=== PATIENT | male | born 1970 ===

== ENCOUNTER 2020-04-25 17:17 | Inpatient (IN) | payer SELFPAY ==
[~2020-04-25 17:17] MED LIST: Calcium Chloride 1 GM/10 ML Abboject SYRINGE ONE; EPINEPHrine 1 MG/10 ML Abboject SYRINGE ONE; Iopamidol 300 61% 100 ML VIAL FS ONE; Sodium Bicarb 50 MEQ/50 ML Abboject 8.4% SYRINGE ONE
[2020-04-25] MEDS ORDERED: Sodium Bicarb 50 MEQ/50 ML Abboject 8.4% SYRINGE ONE ×3 (17:23→17:55)
[2020-04-25] MEDS ORDERED: Magnesium 2 GM/50 ML BAG (IN WATER) ONE (17:27)
[2020-04-25] MEDS ORDERED: EPINEPHrine 1 MG/ML AMP ONE ×2 (17:34→17:37)
[2020-04-25] MEDS ORDERED: EPINEPHrine 1 MG/10 ML Abboject SYRINGE ONE ×2 (17:34→17:55)
[2020-04-25] MEDS ORDERED: CEFAZOLIN 1 GM VIAL ONE (17:42)
[2020-04-25] MEDS ORDERED: Boostrix 0.5 ML (Tdap) VIAL ONE (17:42)
[2020-04-25] MEDS ORDERED: Tranexamic Acid 1,000 MG/10 ML VIAL ONE (17:45)
[2020-04-25] MEDS ORDERED: Vecuronium 10 MG VIAL ONE (17:55)
[2020-04-25] MEDS ORDERED: Rocuronium Bromide 10 MG/ML (10ML VIAL) ONE (17:55)
[2020-04-25] MEDS ORDERED: Calcium Chloride 1 GM/10 ML Abboject SYRINGE ONE ×4 (17:55→22:00)
[2020-04-25 18:02] LABS: Bacteria/HPF 4+ HPF (None Seen); Bilirubin Negative (Negative); Blood, Urine 1+ (Negative); Clarity Extra Turbid (Clear); Glucose, Urine (Dipstick) Normal (Negative); Ketone, Urine Negative (Negative); Leukocyte 500 Leu/uL (Negative); Nitrite Negative (Negative); Protein, Urine (Dipstick) 600 mg/dL (Neg-Trace); RBC/HPF 21-50 HPF (0-3); Specific Gravity, Urine 1.019 (1.002-1.036); Squamous Epithelial 0-3 HPF (0-3); Urobilinogen Normal mg/dL (Less than 2); WBC/HPF Greater than 50 HPF (0-3)
[2020-04-25 18:06] LABS: Triple Phosphate Crystal 2+ HPF (None Seen)
[2020-04-25 18:53] LABS: #Eosinphils 0.2 thou/uL (0.0-0.7); #Lymphocytes 1.8 thou/uL (1.20-3.40); #Monocytes 0.2 thou/uL (0.11-0.59); #Neutrophils 8.3 thou/uL (1.40-6.50); %Basophils 0.4 % (0.0-1.0); %Lymphocytes 17.2 % (21.0-51.0); %Monocytes 2.2 % (0.0-10.0); %Neutrophils 78.2 % (42.0-75.0); Mean Corpuscular HGB CONC 33.9 g/dL (32.0-36.0); Mean Corpuscular Hemoglobin 31.8 pg (27.0-31.0); Mean Corpuscular Volume 93.9 fL (78.0-98.0); Red Blood Cell (RBC) Count 3.47 mill/uL (4.70-6.10); White Blood Cell (WBC) Count 10.6 thou/uL (4.8-10.8)
[2020-04-25 19:03] LABS: Mean Platelet Volume 8.2 fL (7.4-10.4); Platelet Count 31 thou/uL (130-400)
[2020-04-25 19:06] LABS: INR-International Normal Ratio 1.9; Prothrombin Time 21.9 sec (12.0-14.7)
[2020-04-25 19:12] LABS: MDiff Complete? YES; Ovalocytes SLIGHT = 2-5 cells (100X) (0-1/hpf); Platelet Morphology Comment Appears Decreased; Polychromasia SLIGHT = 2-3 cells (100X) (0-2/hpf)
[2020-04-25 19:14] LABS: ALT (SGPT) 564 U/L (8-55); AST (SGOT) 633 U/L (5-34); Albumin 2.6 g/dL (3.5-5.0); Alkaline Phosphatase 41 U/L (40-110); Anion Gap 27 mmol/L (10-20); BUN (Urea Nitrogen) 13 mg/dL (8.9-20.6); Bilirubin, Total 0.3 mg/dL (0.2-1.2); Calc. Creatinine Clearance 0 mL/min (70-130); Calcium 7.9 mg/dL (7.8-10.44); Carbon Dioxide 10 mmol/L (22-29); Chloride 112 mmol/L (98-107); Estimated GFR-MDRD 66; Globulin 1.4 g/dL (2.4-3.5); Glucose 203 mg/dL (70-105); PTT 181.6 sec (22.9-36.1); Potassium 4.6 mmol/L (3.5-5.1); Sodium 144 mmol/L (136-145)
[2020-04-25] MEDS ORDERED: Sodium Chloride 0.9% 30 ML ONE (19:16)
[2020-04-25] MEDS ORDERED: Hydrocortisone Sod Succ/PF 100 mg/2 ml Vial IVP SCH (20:15)
[2020-04-25] MEDS ORDERED: Dextrose 5% in Water 1,000 ML IV PRN (20:19)
[2020-04-25] MEDS ORDERED: Dextrose 50% Abboject 50 ML SYRINGE SLOW IVP PRN (20:19)
[2020-04-25] MEDS ORDERED: Ondansetron PF 4 MG/2 ML Vial IVP PRN (20:19)
[2020-04-25] MEDS ORDERED: Sodium Chloride 0.9% 1,000 ML IV SCH (20:19)
[2020-04-25] MEDS ORDERED: Insulin Regular 300 UNITS/3 ML VIAL SC PRN (20:19)
[2020-04-25] MEDS ORDERED: Ventilator Sedation Protocol 1 EACH FS SCH (20:19)
[2020-04-25] MEDS ORDERED: Ondansetron ODT 4 MG TAB PO PRN (20:19)
[2020-04-25 20:20] LABS: Actual Bicarbonate (HCO3a) 25.9 mEq/L (22-28); Base Excess (BEa) -1.2 mEq/L (-2.0 to +3.0); CO2 Tension 56.3 mmHg (35.0-45.0); Calcium, Ionized (arterial) 0.99 mmol/L (1.12-1.30); Carboxyhemoglobin (COHb) 0.1 gm% (0.0-3.0); Hemoglobin (Hb) 8.7 g/dL (14.0-18.0); O2 Tension (PaO2), arterial 61.1 mmHg (80.0-100.0); Potassium - ABG Lab 3.66 mmol/L (3.70-5.30); pH, Arterial 7.28 (7.35-7.45)
[2020-04-25 20:22] LABS: Puncture Site ART LINE
[2020-04-25 20:23] LABS: ALV-art Gradient 581.525 mmHg (0-20)
[2020-04-25] MEDS ORDERED: Lorazepam 2 MG/ML VIAL SLOW IVP PRN (20:30)
[2020-04-25] MEDS ORDERED: Propofol BOLUS 1,000 MG/100 ML VIAL IV PRN (20:30)
[2020-04-25] MEDS ORDERED: Propofol 1,000 MG/100 ML VIAL IV PRN (20:30)
[2020-04-25] MEDS ORDERED: DISCONTINUE PREVIOUS NARCOTIC PAIN MEDICATIONS AND BENZODIAZEPINES FS SCH (20:30)
[2020-04-25] MEDS ORDERED: Fentanyl BOLUS 250 ML IVPB PRN (20:30)
[2020-04-25] MEDS ORDERED: Morphine 2 MG/ML VIAL SLOW IVP PRN (20:30)
[2020-04-25] MEDS ORDERED: fentaNYL Citrate/PF 2,000 MCG in Sodium Chloride 0.9% 60 ML IV SCH (20:30)
[2020-04-25] MEDS: Sodium Bicarb 50 MEQ/50 ML Abboject 8.4% SYRINGE ONE (20:35)
--- NOTE | 2020-04-25 20:42 | RAD ---
ONE VIEW ABDOMEN: 04/25/20 INDICATIONS: An intraoperative exam. Assess for metal foreign body. FINDINGS/IMPRESSION: An NG tube passed through the EG junction and coils within the stomach with tip pointing superiorly. There are numerous radiopaque strips consistent with lap pads. Location of these cannot be assessed o n this one view abdomen. No evidence of metallic foreign body identified. POS: AGW
[2020-04-25] MEDS ORDERED: Sodium Bicarb 50 MEQ/50 ML Abboject 8.4% SYRINGE IVP SCH ×2 (20:45)
[2020-04-25 20:46] LABS: #Eosinphils 0.2 thou/uL (0.0-0.7); #Lymphocytes 1.6 thou/uL (1.20-3.40); #Monocytes 0.1 thou/uL (0.11-0.59); #Neutrophils 4.1 thou/uL (1.40-6.50); %Eosinophils 2.9 % (0.0-10.0); %Lymphocytes 26.4 % (21.0-51.0); %Monocytes 2.2 % (0.0-10.0); %Neutrophils 68.5 % (42.0-75.0); Hemoglobin 8.4 g/dL (14.0-18.0); Mean Corpuscular HGB CONC 36.1 g/dL (32.0-36.0); Mean Corpuscular Hemoglobin 32.7 pg (27.0-31.0); Mean Corpuscular Volume 90.4 fL (78.0-98.0); Mean Platelet Volume 7.7 fL (7.4-10.4); Platelet Count 76 thou/uL (130-400); RBC Distribution Width 13.7 % (11.5-14.5); Red Blood Cell (RBC) Count 2.58 mill/uL (4.70-6.10)
[2020-04-25] MEDS ORDERED: Albumin 5% 250 ML ONE ×2 (20:51)
[2020-04-25] MEDS: EPINEPHrine 4 MG in Dextrose 5% in Water 250 ML IVPB SCH (20:53)
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
[2020-04-25 21:00] VITALS: BMI 25.3
[2020-04-25] MEDS ORDERED: Sodium Bicarbonate 50 MEQ in Sodium Chloride 0.45% 1,000 ML IV ONE (21:00)
[2020-04-25] MEDS ORDERED: Famotidine/PF 20 mg/2ml Vial SLOW IVP SCH (21:00)
--- NOTE | 2020-04-25 21:01 | OP ---
DATE OF PROCEDURE: 04/25/2020 PREOPERATIVE DIAGNOSIS: Traumatic shock. POSTOPERATIVE DIAGNOSIS: Traumatic shock. PROCEDURE PERFORMED: Left subclavian trauma Cordis placement. ANESTHESIA: General. ESTIMATED BLOOD LOSS: Minimal. COMPLICATIONS: None. DESCRIPTION OF PROCEDURE: The left chest was prepped and draped in a sterile fashion. Seldinger needle was used to cannulate the left subclavian vein. A wire was passed in through this Seldinger needle under no tension. A leanna was made at the wire entrance site. The wire was used as a guide to dilate the subclavian vein. The Cordis was placed to its fullest extent and the wire and dilator were removed. The Cordis was sewn to the chest wall using silk. The ports were all flushed and hooked up immediately. No complications of the procedure. Job ID: [id number]
--- NOTE | 2020-04-25 21:01 | OP ---
DATE OF PROCEDURE: 04/25/2020 PREOPERATIVE DIAGNOSIS: Hemoperitoneum. POSTOPERATIVE DIAGNOSES: Hemoperitoneum, multiple traumatic injuries to the small intestinal mesentery with avulsion of parts of the mesentery from the retroperitoneum, multiple small bowel injuries, traumatic tears with loss of small bowel mesentery in multiple places. PROCEDURES PERFORMED: Exploratory laparotomy for trauma with washout, resection without anastomosis of multiple nonviable traumatically injured segments of small intestine, management of bleeding in the mesentery and full traumatic exploration. ABThera placement. TECHNIQUE: The patient was taken emergently from the ER to the OR. His abdomen was shaved. A midline incision was made after prep. All four quadrants were packed with approximately 50 laparotomy pads. We did have a blood pressure at that point. Bookwalter retractor was placed. The packs were removed from the left upper quadrant. At first, revealed no obvious spleen injury. There was significant amount of ongoing bleeding in the central mesentery. The packs were removed after Anesthesia has stabilized the patient to reveal that the base of the small bowel mesentery completely mostly avulsed from the retroperitoneum. There was no significant retroperitoneum ongoing bleeding. There was no injury to major blood vessels. There was significant bleeding along the edges of small bowel mesentery, multiple segments of small bowel mesentery with large traumatic windows all the way to the mesenteric surface of the small bowel with the small bowel torn in these places, and the whole mesenteric side of the small bowel was torn off. Due to the bleeding, he has multiple intraabdominal internal hernias through these traumatic mesenteric rents. The areas where the mesenteric side of the small bowel were completely torn. SAM 75 stapler was fired proximal and distal to remove the segments. No anastomoses were performed in this setting given the patient's critical injuries and ongoing bleeding. Several areas of the these small bowel mesenteric edges were oversewn using silk suture. There was no liver bleeding. There was no spleen bleeding. There was no bleeding ongoing from the retroperitoneum. A medial visceral rotation was started in the right lower quadrant to mobilize the right colon up off the retroperitoneal structures. There was no significant retroperitoneal bleeding during this portion of the procedure. At the base of the small bowel mesentery, there was significant venous bleeding. This area was oversewn using 2-0 silk. Some of the small bowel did start to appear dusky and ischemic during this portion of the procedure, but the majority of the residual small bowel did still appear viable. There was no bleeding in the lesser sac. No obvious pancreatic injury. No duodenal injury or injury in the upper retroperitoneum. No obvious stomach injury. Multiple arterial bleeders were oversewn along the edges of the torn small bowel mesentery in multiple areas. The patient was becoming coagulopathic with all cut surfaces starting to ooze. Decision was made to pack. The patient had multiple lap pads left packed in his abdomen. The ABThera was placed in the usual fashion. He was en route to the ICU in critical and unstable condition. Job ID: [id number]
--- NOTE | 2020-04-25 21:06 | RAD ---
PORTABLE SUPINE CHEST: 04/25/20 INDICATIONS: Intraoperative evaluation. COMPARISON: Film taken earlier today. ET tube, NG tube, appear adequate positioned. Bilateral chest tubes again noted. Cardiomegaly with va scular congestion. Subcutaneous emphysema of chest. The peripheral right chest and CP angle is not in cluded on this film. Radiopaque foreign material overlies the upper abdomen consistent with lap pads. IMPRESSION: No evidence of significant interval change in the appearance of the chest. POS: AGW
[2020-04-25 21:07] VITALS: TEMP 94.9
[2020-04-25 21:07] LABS: Anion Gap 25 mmol/L (10-20); BUN (Urea Nitrogen) 17 mg/dL (8.9-20.6); Calc. Creatinine Clearance 68 mL/min (70-130); Calcium 10.3 mg/dL (7.8-10.44); Carbon Dioxide 23 mmol/L (22-29); Chloride 105 mmol/L (98-107); Estimated GFR-MDRD 49; Glucose 193 mg/dL (70-105); Magnesium 2.3 mg/dL (1.6-2.6); Phosphorus 7.7 mg/dL (2.3-4.7); Potassium 3.9 mmol/L (3.5-5.1); Sodium 149 mmol/L (136-145)
--- NOTE | 2020-04-25 21:11 | RAD ---
PORTABLE SUPINE CHEST: 04/25/20 INDICATIONS: CPR in progress. COMPARISON: 03/24/20. Cardiomegaly with postop sternotomy change. Vascular congestion. Bilateral chest tubes are noted. The re is subcutaneous emphysema over the right chest. There may be tiny bilateral pneumothoraces althoug h no significant pneumothorax is apparent. ET tube is in adequate position with tip above suzy. IMPRESSION: Subcutaneous emphysema over the right chest. No definite rib fracture seen on this portable projectio n. No significant pneumothorax is identified. POS: AGW
[2020-04-25 21:21] LABS: Amphetamine Detected (NotDetected); Barbiturates Screen Not Detected (NotDetected); Benzodiazepine Screen Not Detected (NotDetected); Cocaine Metabolite Screen Not Detected (NotDetected); Medtox Control Line Valid? VALID (VALID); Medtox Reader # READER 4; Methadone Not Detected (NotDetected); Methamphetamine Detected (NotDetected); Opiate Screen Not Detected (NotDetected); Oxycodone Screen Not Detected (NotDetected); Phencyclidine (PCP) Not Detected (NotDetected); THC/Cannabinoid Screen Not Detected (NotDetected); Tricyclic Screen Not Detected (NotDetected)
[2020-04-25 21:50] LABS: Actual Bicarbonate (HCO3a) 25.2 mEq/L (22-28); Base Excess (BEa) -1.3 mEq/L (-2.0 to +3.0); CO2 Tension 54.7 mmHg (35.0-45.0); Calcium, Ionized (arterial) 1.36 mmol/L (1.12-1.30); Carboxyhemoglobin (COHb) 0.3 gm% (0.0-3.0); O2 Tension (PaO2), arterial 179.3 mmHg (80.0-100.0); Potassium - ABG Lab 3.38 mmol/L (3.70-5.30); pH, Arterial 7.28 (7.35-7.45)
[2020-04-25 22:08] LABS: Lactic Acid 12.2 mmol/L (0.5-2.2)
[2020-04-25] MEDS ORDERED: Calcium Chloride 1 GM/10 ML Abboject SYRINGE IVP SCH (22:15)
[2020-04-25 22:45] LABS: INR-International Normal Ratio 2.2; Prothrombin Time 24.7 sec (12.0-14.7)
[2020-04-25 22:47] LABS: PTT 102.9 sec (22.9-36.1)
[2020-04-25 23:07] LABS: Troponin I 1.124 ng/mL (< 0.028)
[2020-04-26 00:01] LABS: Actual Bicarbonate (HCO3a) 26.7 mEq/L (22-28); Base Excess (BEa) -0.6 mEq/L (-2.0 to +3.0); Calcium, Ionized (arterial) 1.51 mmol/L (1.12-1.30); Carboxyhemoglobin (COHb) 0.3 gm% (0.0-3.0); Hemoglobin (Hb) 6.5 g/dL (14.0-18.0); Potassium - ABG Lab 3.01 mmol/L (3.70-5.30)
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
[2020-04-26 01:05] LABS: Actual Bicarbonate (HCO3a) 21.9 mEq/L (22-28); Base Excess (BEa) -3.4 mEq/L (-2.0 to +3.0); CO2 Tension 40.2 mmHg (35.0-45.0); Calcium, Ionized (arterial) 1.13 mmol/L (1.12-1.30); Carboxyhemoglobin (COHb) 0.3 gm% (0.0-3.0); Hemoglobin (Hb) 6.9 g/dL (14.0-18.0); O2 Tension (PaO2), arterial 423.9 mmHg (80.0-100.0); Potassium - ABG Lab 3.19 mmol/L (3.70-5.30); pH, Arterial 7.35 (7.35-7.45)
[2020-04-26 01:16] LABS: Puncture Site ART LINE
[2020-04-26] MEDS ORDERED: Calcium Chloride 1 GM/10 ML Abboject SYRINGE IVP SCH (01:45)
[2020-04-26] MEDS ORDERED: Hydrocortisone Sod Succ/PF 100 mg/2 ml Vial IVP SCH (02:00)
[2020-04-26] MEDS: EPINEPHrine 4 MG in Dextrose 5% in Water 250 ML IVPB SCH (02:10)
[2020-04-26 02:28] LABS: Actual Bicarbonate (HCO3a) 24.7 mEq/L (22-28); Base Excess (BEa) -1.4 mEq/L (-2.0 to +3.0); CO2 Tension 48.3 mmHg (35.0-45.0); Carboxyhemoglobin (COHb) 0.3 gm% (0.0-3.0); Potassium - ABG Lab 3.24 mmol/L (3.70-5.30); pH, Arterial 7.33 (7.35-7.45)
[2020-04-26 02:29] LABS: O2 Tension (PaO2), arterial 501.7 mmHg (80.0-100.0); Puncture Site ART LINE
[2020-04-26 02:30] LABS: ALV-art Gradient 150.925 mmHg (0-20)
[2020-04-26 02:53] LABS: Hemoglobin (Hb) 5.8 g/dL (14.0-18.0); Puncture Site ART LINE
[2020-04-26 02:54] LABS: ALV-art Gradient 322.725 mmHg (0-20)
[2020-04-26 02:57] LABS: CO2 Tension 62.8 mmHg (35.0-45.0); pH, Arterial 7.25 (7.35-7.45)
[2020-04-26 02:58] LABS: O2 Tension (PaO2), arterial 47.4 mmHg (80.0-100.0)
[2020-04-26 04:02] LABS: INR-International Normal Ratio 1.8; PTT 50.8 sec (22.9-36.1); Prothrombin Time 21.6 sec (12.0-14.7)
[2020-04-26 04:15] LABS: Anion Gap 25 mmol/L (10-20); BUN (Urea Nitrogen) 19 mg/dL (8.9-20.6); Calc. Creatinine Clearance 51 mL/min (70-130); Calcium 11.6 mg/dL (7.8-10.44); Carbon Dioxide 15 mmol/L (22-29); Chloride 111 mmol/L (98-107); Estimated GFR-MDRD 35; Glucose 122 mg/dL (70-105); Magnesium 1.7 mg/dL (1.6-2.6); Potassium 4.2 mmol/L (3.5-5.1); Sodium 147 mmol/L (136-145)
[2020-04-26 04:19] LABS: CK (CPK) 994 U/L (30-200); Phosphorus 5.2 mg/dL (2.3-4.7)
[2020-04-26 04:36] LABS: Band 23 % (5-11); Hypochromia SLIGHT = 6-15 cells (100X) (0-5/hpf); Lymphocytes 25 % (21-51); MDiff Complete? YES; Mean Corpuscular HGB CONC 35.5 g/dL (32.0-36.0); Mean Corpuscular Hemoglobin 31.8 pg (27.0-31.0); Mean Corpuscular Volume 89.5 fL (78.0-98.0); Mean Platelet Volume 8.2 fL (7.4-10.4); Monocytes 5 % (0-10); Neutrophil 47 % (42-75); Platelet Count 42 thou/uL (130-400); Platelet Morphology Comment Appears Decreased; RBC Distribution Width 12.8 % (11.5-14.5); Red Blood Cell (RBC) Count 2.19 mill/uL (4.70-6.10); White Blood Cell (WBC) Count 4.1 thou/uL (4.8-10.8)
[2020-04-26 04:37] LABS: CKMB 26.7 ng/mL (0-6.6)
--- NOTE | 2020-04-26 07:32 | RAD ---
SUPINE ABDOMEN: Indications: Lap count FINDINGS: NG tube passes the EG junction with the tip overlying the region of the gastric antrum. A right chest tube is noted. No radiopaque foreign body identified in the abdomen. Residual contrast in a contracted bladder. Resi dual contrast seen within bladder diverticula which were previously described. IMPRESSION: As above. POS: AGW
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
--- NOTE | 2020-04-26 07:44 | RAD ---
EXAM: 3 views of the left hand COMPARISON: None HISTORY: Hand pain FINDINGS: 3 views of the hand shows no evidence of acute fracture or dislocation. No degenerative casa nges are seen. Mild diffuse soft tissue swelling is present. IMPRESSION: Unremarkable exam.
--- NOTE | 2020-04-26 07:47 | RAD ---
AP PELVIS: Contrast was injected retrograde through the Taylor catheter and an AP cystogram was performed. INDICATION: Confirm Taylor catheter placement. FINDINGS: This single view shows opacification of the bladder. The bladder shows trabeculation and there are d iverticula extending from the bladder wall. There is a large diverticula extending laterally on the left measuring 3 cm and a smaller diverticulum extending laterally from the right measuring approxima tely 2 cm. No extravasation. Numerous lap pads are seen overlying the abdomen which were placed during surgery. POS: AGW
[2020-04-26] MEDS ORDERED: FLU VACC QS2020-21(6MOS UP)/PF 60 MCG/0.5 ML SYRINGE IM ONE (09:00)
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
== END 2020-04-26 03:40 | disposition expired | DRG 329 ==
LOC: EDBD 17:17 → ERS 17:17 → SDC 17:47 → CCU 18:39
PROVIDERS: ADMIT Surgery; ATTEND Surgery
PROC: 0W3P7ZZ Control Bleeding in Gastrointestinal Tract, Via Natural or Artificial Opening (ICD-10-PCS; principal; 2020-04-25)
PROC: 0DB80ZZ Excision of Small Intestine, Open Approach (ICD-10-PCS; 2020-04-25)
PROC: 30233L1 Transfusion of Nonautologous Fresh Plasma into Peripheral Vein, Percutaneous Approach (ICD-10-PCS; 2020-04-25)
PROC: 30233R1 Transfusion of Nonautologous Platelets into Peripheral Vein, Percutaneous Approach (ICD-10-PCS; 2020-04-25)
PROC: 30233M1 Transfusion of Nonautologous Plasma Cryoprecipitate into Peripheral Vein, Percutaneous Approach (ICD-10-PCS; 2020-04-25)
PROC: 30233K1 Transfusion of Nonautologous Frozen Plasma into Peripheral Vein, Percutaneous Approach (ICD-10-PCS; 2020-04-25)
PROC: 30230N1 Transfusion of Nonautologous Red Blood Cells into Peripheral Vein, Open Approach (ICD-10-PCS; 2020-04-25)
PROC: 0DB80ZZ Excision of Small Intestine, Open Approach (ICD-10-PCS; 2020-04-25)
PROC: 0WJP7ZZ Inspection of Gastrointestinal Tract, Via Natural or Artificial Opening Approach (ICD-10-PCS; 2020-04-25)
PROC: 06HY33Z Insertion of Infusion Device into Lower Vein, Percutaneous Approach (ICD-10-PCS; 2020-04-25)
PROC: 5A2204Z Restoration of Cardiac Rhythm, Single (ICD-10-PCS; 2020-04-25)
PROC: 5A12012 Performance of Cardiac Output, Single, Manual (ICD-10-PCS; 2020-04-25)
PROC: 3E033XZ Introduction of Vasopressor into Peripheral Vein, Percutaneous Approach (ICD-10-PCS; 2020-04-25)
PROC: 0W9B30Z Drainage of Left Pleural Cavity with Drainage Device, Percutaneous Approach (ICD-10-PCS; 2020-04-25)
PROC: 0W9930Z Drainage of Right Pleural Cavity with Drainage Device, Percutaneous Approach (ICD-10-PCS; 2020-04-25)
DX: S36.409A Unspecified injury of unspecified part of small intestine, initial encounter (principal); T79.4XXA Traumatic shock, initial encounter; J96.90 Respiratory failure, unspecified, unspecified whether with hypoxia or hypercapnia; S36.113A Laceration of liver, unspecified degree, initial encounter; I49.01 Ventricular fibrillation; V89.2XXA Person injured in unspecified motor-vehicle accident, traffic, initial encounter; I46.9 Cardiac arrest, cause unspecified; Z23 Encounter for immunization
CPT/HCPCS: 32551; 36415; 36416; 36430; 36556; 71045; 72170; 74018; 80048; 80053; 80306; 81003; 81015; 82550; 82553; 82805; 83605; 83735; 84100; 84484; 85025; 85384; 85610; 85730; 86850; 86900; 86901; 87077; 87086; 87186; 88307; 90471; 90715; 92950; 94002; 94003; 94640; 96365; 96375; 96376; G0390; J0171; J0690; J1720; J3475; J3490; J7070; J7189; J7620; P9012; P9016; P9035; P9045; P9048; P9059; Q9967; S0028